=== PATIENT | female | born 1995 | race Caucasian/White ===

== ENCOUNTER 2016-07-16 10:20 | Emergency (ER) | payer OTHER ==
[2016-07-16] MEDS ORDERED: Ondansetron ODT TAB* 4 MG PO ONE (11:14)
[2016-07-16] MEDS ORDERED: Lidocaine 2% PF* 5 ML VIAL ONE (11:17)
--- NOTE | 2016-07-16 12:41 | UC ---
Laceration HPI - HPI Summary HPI Summary: WHILE WORKING WITH [employer], CHAIN BROKE AND HIT WINDOW, GLASS SHATTERED CAUSING CUT TO RIGHT EAR. NO LOC. NO N/V NO NECK PAIN. NO HEADACHE. NO BLOOD DISORDERS. - History Of Current Complaint Chief Complaint: UCLaceration Stated Complaint: EAR LAC,HEAD INJ,GLASS Time Seen by Provider: 07/16/16 10:42 Hx Obtained From: Patient Laceration Location: Ear Mechanism Of Injury: Blunt Trauma Onset/Duration: Lasting Hours Severity: Mild Pain Intensity: 0 Pain Scale Used: 0-10 Numeric Aggravating Factors: Nothing - Allergies/Home Medications Allergies/Adverse Reactions: Allergies Allergy/AdvReac Type Severity Reaction Status Date / Time No Known Allergies Allergy Verified 07/16/16 10:40 Home Medications: Home Medications NK [No Home Medications Reported] 07/16/16 [History Confirmed 07/16/16] PMH/Surg Hx/FS Hx/Imm Hx Previously Healthy: Yes Cardiovascular History Of: Comment Only: Cardiac Disorders - Irregular HR Respiratory History Of: Reports: Asthma - As child - Surgical History Surgical History: None - Family History Known Family History: Negative: Blood Disorder - Social History Occupation: Employed Full-time, Student Lives: With Family Alcohol Use: Rare Substance Use Type: None Smoking Status (MU): Never Smoked Tobacco Review of Systems Constitutional: Negative Skin: Other - LACERATION RIGHT EAR Eyes: Negative ENT: Negative Respiratory: Negative Cardiovascular: Negative Gastrointestinal: Negative Genitourinary: Negative Motor: Negative Neurovascular: Negative Musculoskeletal: Negative Neurological: Negative Psychological: Negative All Other Systems Reviewed And Are Negative: Yes Physical Exam Triage Information Reviewed: Yes Appearance: Well-Appearing, No Pain Distress, Well-Nourished Vital Signs: Initial Vital Signs Temp 98.8 F 07/16/16 10:40 Pulse 78 07/16/16 10:40 Resp 18 07/16/16 10:40 BP 143/78 07/16/16 10:40 Pulse Ox 100 07/16/16 10:40 Vital Signs Reviewed: Yes Eye Exam: Normal Eyes: Positive: Conjunctiva Clear ENT: Positive: Normal ENT inspection, Hearing grossly normal, Pharynx normal, TMs normal, Other: - CERUMEN IMPACTION RIGHT EAR Dental Exam: Normal Neck exam: Normal Neck: Positive: Supple, Nontender Respiratory Exam: Normal Respiratory: Positive: Chest non-tender, Lungs clear, Normal breath sounds, No respiratory distress, No accessory muscle use Cardiovascular Exam: Normal Cardiovascular: Positive: RRR, No Murmur, Pulses Normal Abdominal Exam: Normal Abdomen Description: Positive: Nontender, No Organomegaly Musculoskeletal Exam: Normal Musculoskeletal: Positive: Strength Intact, ROM Intact Neurological Exam: Normal Neurological: Positive: Alert Psychological Exam: Normal Psychological: Positive: Normal Response To Family Skin Exam: Other - LACERATION RIGHT EAR Laceration Repair - Laceration Repair 1 Description: Irregular - RIGHT EAR HELIX Laceration Size After Repair: Length (cm) - 3, Width (mm) - 3, Depth (mm) - 2 Modified For Repair: Yes Type Injection: Local Anesthesia Used: 2.0% Lido Cleansing Completed Via Routine Prep: Yes Irrigation With Pressure Irrigation Device: Yes Closure Material: Sutures - 3 X 5-0 Closure Method: Single Layer Suture Of: Skin Suture Type: Prolene Laceration Course/Dx - Differential Dx - Laceration/Wound Differental Diagnoses: Fracture, Laceration Provider Diagnoses: RIGHT EAR LACERATION. HEAD INJURY. RIGHT EAR CERUMEN IMPACTION Discharge - Discharge Plan Condition: Stable Disposition: HOME Patient Education Materials: Care For Your Stitches (ED), Laceration (ED), Head Injury (ED) Referrals: [facility] [Outside] Non Staff,Doctor [Primary Care Provider] -
== END 2016-07-16 12:23 | disposition home or self-care (01) ==
LOC: UCEAST 10:20
DX: S01.311A Laceration without foreign body of right ear, initial encounter (principal); W25.XXXA Contact with sharp glass, initial encounter; Y93.89 Activity, other specified; Y92.89 Other specified places as the place of occurrence of the external cause; Y99.0 Civilian activity done for income or pay; H61.21 Impacted cerumen, right ear; R03.0 Elevated blood-pressure reading, without diagnosis of hypertension
CPT/HCPCS: 12013; 99203; G0463

== ENCOUNTER 2017-08-24 11:35 | Emergency (ER) | payer OTHER ==
[2017-08-24 11:50] VITALS: BP 135/85
--- NOTE | 2017-08-24 12:38 | UC ---
Abdominal Pain Female HPI - HPI Summary HPI Summary: 6 days of "feeling off". Now has nausea, vomiting and water and mucous stool--- - History of Current Complaint Hx Obtained From: Patient Hx Last Menstrual Period: 08/17/17 ?: No Onset/Duration: Sudden Onset, Lasting Days - 6, Still Present Timing: Constant Severity Initially: Moderate Severity Currently: Moderate Pain Intensity: 5 Pain Scale Used: 0-10 Numeric Location: Diffuse Radiates: No Character: Cramping Aggravating Factor(s): Nothing Alleviating Factor(s): Nothing Associated Signs and Symptoms: Positive: Decreased Appetite, Nausea, Vomiting, Diarrhea <Winnie Mandujano - Last Filed: 08/24/17 13:28> <Josee Amos - Last Filed: 08/24/17 14:08> - History of Current Complaint Chief Complaint: UCRespiratory Stated Complaint: FLU SYMPTOMS Time Seen by Provider: 08/24/17 12:11 Allergies/Adverse Reactions: Allergies Allergy/AdvReac Type Severity Reaction Status Date / Time No Known Allergies Allergy Verified 08/24/17 11:50 PMH/Surg Hx/FS Hx/Imm Hx Previously Healthy: Yes - Surgical History Surgical History: None - Family History Known Family History: Positive: None Negative: Blood Disorder - Social History Occupation: Employed Full-time - maritime officer self employed [place] Lives: Alone Alcohol Use: Occasionally Substance Use Type: None Smoking Status (MU): Never Smoked Tobacco <Winnie Mandujano - Last Filed: 08/24/17 13:28> Review of Systems Constitutional: Negative Skin: Negative Eyes: Negative ENT: Negative Respiratory: Negative Cardiovascular: Negative Gastrointestinal: Abdominal Pain, Vomiting, Diarrhea, Nausea Genitourinary: Negative Motor: Negative Neurovascular: Negative Musculoskeletal: Negative Neurological: Negative Psychological: Negative Is Patient Immunocompromised?: No All Other Systems Reviewed And Are Negative: Yes <Winnie Mandujano - Last Filed: 08/24/17 13:28> Physical Exam Triage Information Reviewed: Yes Appearance: Well-Appearing, No Pain Distress, Well-Nourished Vital Signs: Initial Vital Signs Temp 100.5 F 08/24/17 11:42 Pulse 105 08/24/17 11:42 Resp 18 08/24/17 11:42 BP 135/85 08/24/17 11:42 Pulse Ox 99 08/24/17 11:42 Vital Signs Reviewed: Yes Eye Exam: Normal Eyes: Positive: Conjunctiva Clear ENT Exam: Normal ENT: Positive: Normal ENT inspection, Hearing grossly normal, Pharynx normal, Uvula midline, Other - tms with cerumen. Negative: Nasal congestion, Trismus, Muffled voice, Hoarse voice, Sinus tenderness Dental Exam: Normal Neck exam: Normal Neck: Positive: Supple, Nontender Respiratory Exam: Normal Respiratory: Positive: Chest non-tender, Lungs clear, Normal breath sounds, No respiratory distress, No accessory muscle use Cardiovascular Exam: Normal Cardiovascular: Positive: RRR, Pulses Normal, Brisk Capillary Refill, Tachycardia Abdominal Exam: Other Abdomen Description: Positive: No Organomegaly, Soft. Negative: CVA Tenderness (R), CVA Tenderness (L), Distended, Guarding, McBurney's Point Tenderness, Peritoneal Signs Bowel Sounds: Positive: Present Musculoskeletal Exam: Normal Musculoskeletal: Positive: Strength Intact, ROM Intact, No Edema Neurological Exam: Normal Neurological: Positive: Alert, Muscle Tone Normal Psychological Exam: Normal Skin Exam: Normal <Winnie Mandujano - Last Filed: 08/24/17 13:28> Vital Signs: Initial Vital Signs Temp 100.5 F 08/24/17 11:42 Pulse 105 08/24/17 11:42 Resp 18 08/24/17 11:42 BP 135/85 08/24/17 11:42 Pulse Ox 99 08/24/17 11:42 <Josee Amos - Last Filed: 08/24/17 14:08> Diagnostics - Laboratory Diagnostic Studies Completed/Ordered: Stool--guiac (-), Urine sg 1.025, trace ketones, +1 BILI AND KETONES <Winnie Mandujano - Last Filed: 08/24/17 13:28> Abd Pain Female Course/Dx - Course Course Of Treatment: TO [facility] FOR FURTHER EVALUATION AND TREATMENT OF ABDOMEN PAIN - Differential Dx/Diagnosis Provider Diagnoses: Colitis <Winnie Mandujano - Last Filed: 08/24/17 13:28> Discharge - Sign-Out/Discharge Documenting (check all that apply): Discharge - PAT TO [facility] BY PRIVATE CAR FOR FURTHER EVALUATION - Billing Disposition and Condition Condition: FAIR Disposition: HOME <Winnie Mandujano - Last Filed: 08/24/17 13:28> - Billing Disposition and Condition Condition: FAIR Disposition: HOME <Josee Amos - Last Filed: 08/24/17 14:08> - Discharge Plan Condition: Fair Disposition: HOME Patient Education Materials: Colitis (ED) Referrals: Non Staff,Doctor [Primary Care Provider] - Additional Instructions: Please go directly to the emergency department for continued care Attestation Statement User Type: Provider - I was available for consult. This patient was seen by the ADALI. The patient was not presented to, seen by, or examined by me. Ljj <Josee Amos - Last Filed: 08/24/17 14:08>
--- NOTE | 2017-08-25 17:04 | UC ---
- Progress Note Progress Note: call aptient and assure that she is better if not please recollect stool sample as quanity provided was not enough for testing Discharge - Sign-Out/Discharge Documenting (check all that apply): Post-Discharge Follow Up - Discharge Plan Condition: Fair Disposition: HOME Patient Education Materials: Colitis (ED) Referrals: Non Staff,Doctor [Primary Care Provider] - Additional Instructions: Please go directly to the emergency department for continued care - Billing Disposition and Condition Condition: FAIR Disposition: HOME
--- NOTE | 2017-08-26 13:22 | UC ---
- Progress Note Progress Note: Lab called with positive cryptosporidium. I am told that our staff has been trying to get in contact with the pt multiple times to see how she is feeling and have been unsuccessful. Cryptosporidium is generally self limiting, but may take up to two weeks for diarrhea to fully resolve. May take Imodium OTC 4 mg, followed by 2 mg after each loose stool - max of 16mg/day. During that time frame it is important to stay hydrated. If we are able to get into contact with pt, please let her know the above. If she is feeling worse - should go to ED for IVF. Discharge - Sign-Out/Discharge Documenting (check all that apply): Post-Discharge Follow Up - Discharge Plan Condition: Fair Disposition: HOME Patient Education Materials: Colitis (ED) Referrals: Non Staff,Doctor [Primary Care Provider] - Additional Instructions: Please go directly to the emergency department for continued care - Billing Disposition and Condition Condition: FAIR Disposition: HOME
== END 2017-08-24 13:35 | disposition home or self-care (01) ==
LOC: UCEAST 11:35
DX: K52.9 Noninfective gastroenteritis and colitis, unspecified (principal)
CPT/HCPCS: 81003; 82272; 87045; 87046; 87077; 87328; 87329; 87502; 99212; G0463

== ENCOUNTER 2017-11-26 21:02 | Emergency (ER) | payer OTHER ==
[2017-11-26 21:22] VITALS: BP 129/85
--- NOTE | 2017-11-26 21:36 | UC ---
Head Injury HPI - HPI Summary HPI Summary: 22 year old female with history of prior concussion here after she fell from a horse. She hit her head but no LOC. Reports headache and nausea with no vomiting. Patient reports left ankle pain and swelling. No numbness or tingling. No change in vision. No other complaints. - History Of Current Complaint Chief Complaint: UCTrauma Stated Complaint: ANKLE INJURY AND HEAD INJURY Time Seen by Provider: 11/26/17 21:23 Hx Obtained From: Patient Hx Last Menstrual Period: 11/15/17 Onset/Duration: Sudden Onset Severity Currently: Mild Pain Intensity: 2 Character: Sharp - Allergies/Home Medications Allergies/Adverse Reactions: Allergies Allergy/AdvReac Type Severity Reaction Status Date / Time No Known Allergies Allergy Verified 11/26/17 21:10 Home Medications: Home Medications NK [No Home Medications Reported] 11/26/17 [History Confirmed 11/26/17] PMH/Surg Hx/FS Hx/Imm Hx Previously Healthy: Yes - Surgical History Surgical History: None - Family History Known Family History: Positive: None, Diabetes, Other - Hyperthyroidism and hypothyroidism Negative: Blood Disorder - Social History Alcohol Use: Rare Substance Use Type: None Smoking Status (MU): Never Smoked Tobacco Review of Systems Constitutional: Negative Skin: Negative Eyes: Negative ENT: Negative Respiratory: Negative Cardiovascular: Negative Gastrointestinal: Nausea Genitourinary: Negative Motor: Negative Neurovascular: Negative Musculoskeletal: Negative Neurological: Headache Psychological: Negative All Other Systems Reviewed And Are Negative: Yes Physical Exam Triage Information Reviewed: Yes Appearance: Well-Appearing, No Pain Distress Vital Signs: Initial Vital Signs Temp 37.0 C 11/26/17 21:11 Pulse 88 11/26/17 21:11 Resp 18 11/26/17 21:11 BP 129/85 11/26/17 21:11 Pulse Ox 100 11/26/17 21:11 Eye Exam: Normal ENT Exam: Normal Dental Exam: Normal Neck exam: Normal Neck: Positive: 1 Respiratory Exam: Normal Cardiovascular Exam: Normal Abdominal Exam: Normal Musculoskeletal: Positive: ROM Limited @ - Left ankle swelling TTP over lateral mall SILT In s/s/sp/dp/ta intact DP/PT no navicular tenderness Neurological Exam: Normal Neurological: Positive: Other: - nml FTN, HTS, no nystagmus nml gait, negative rhomberg, Psychological Exam: Normal Skin Exam: Normal Diagnostics - Radiology No standard instances Xray Interpretation: Positive (See Comments) - Copied from PACS Order Information: ANKLE LEFT 3+VWS Accession Number: [id number] CPT: 17657 Indication: LEFT ankle injury. Medial and lateral pain and swelling. Comparison : No relevant prior exams available on the [facility] [place] for [place]. Technique: AP, mortise, and lateral views LEFT ankle. Report: Negative for fracture or malalignment. Small os trigonum accessory ossicle. Suggestion of a small loose body at the anterior joint recess. Talocrural joint effusion. Suggestion of a button osteophyte at the superior lateral margin of the dome of the talus which may represent sequela of a previous osteochondral lesion. Soft tissue swelling most prominent over the lateral and anterior aspects. IMPRESSION: #. Soft tissue swelling and talocrural joint effusion without evidence for fracture. #. Osteoarthritis. Probable small loose body at the anterior recess of the talocrural joint. _ <Electronically signed by Juliano Domingo MD in OV> 11/26/172148 Dictated By: Juliano Domingo MD Dictated Date/Time: 11/26/172148 Transcribed Date/Time : 11/26/172144 Copy to: Radiology Interpretation Completed By: Radiologist Head Injury Course/Dx - Course Course Of Treatment: patient did not want any medications for headache, ankle pain or nausea - Differential Dx/Diagnosis Differential Diagnosis/HQI/PQRI: Cervical Sprain, Contusion, Nasal Fracture Provider Diagnoses: Concussion and Left ankle sprain Discharge - Sign-Out/Discharge Documenting (check all that apply): Discharge/Admit/Transfer - Discharge Plan Condition: Good Disposition: HOME Patient Education Materials: Concussion (ED), Ankle Strain (ED) Referrals: No Primary Care Phys,NOPCP [Primary Care Provider] - - Billing Disposition and Condition Condition: GOOD Disposition: Home
--- NOTE | 2017-11-26 21:53 | RAD ---
Indication: LEFT ankle injury. Medial and lateral pain and swelling. Comparison: No relevant prior exams available on the [facility] PACS for comparison. Technique: AP, mortise, and lateral views LEFT ankle. Report: Negative for fracture or malalignment. Small os trigonum accessory ossicle. Suggestion of a small loose body at the anterior joint recess. Talocrural joint effusion. Suggestion of a button osteophyte at the superior lateral margin of the dome of the talus which may represent sequela of a previous osteochondral lesion. Soft tissue swelling most prominent over the lateral and anterior aspects. IMPRESSION: #. Soft tissue swelling and talocrural joint effusion without evidence for fracture. #. Osteoarthritis. Probable small loose body at the anterior recess of the talocrural joint.
[2017-11-26] MEDS ORDERED: Naproxen TAB* 250 MG PO ONE (22:17)
== END 2017-11-26 22:10 | disposition home or self-care (01) ==
LOC: UCEAST 21:02
DX: S06.0X0A Concussion without loss of consciousness, initial encounter (principal); S93.402A Sprain of unspecified ligament of left ankle, initial encounter; V80.010A Animal-rider injured by fall from or being thrown from horse in noncollision accident, initial encounter; Y93.52 Activity, horseback riding; Y92.9 Unspecified place or not applicable; M19.072 Primary osteoarthritis, left ankle and foot; R11.0 Nausea
CPT/HCPCS: 99212; G0463

== ENCOUNTER 2019-04-06 08:01 | Emergency (ER) | payer OTHER ==
--- OUTSIDE RECORDS SUMMARY | 2019-04-06 08:10 | XMS REPORT | Summary of Care ---
:1995 Author Organization [facility] Address 1 [facility] [place] [address] Care Team Providers Name Role Phone Omid Mcnulty Primary Care Provider Reason for Referral MRI/CAT/PET Scan (Routine) Status Reason Specialty Diagnoses / Referred By Referred To Procedures Contact Contact Pending Review Diagnoses Hx of concussion Omid Mcnulty MD Procedures CT HEAD WITHOUT IV CONTRAST [address] [place] [address] Diagnostic Testing (Routine) Status Reason Specialty Diagnoses / Referred By Referred To Procedures Contact Contact Pending Review Diagnoses Dizziness Omid Mcnulty MD Procedures ECHOCARDIOGRAM TTE [address] [place] [id number] MRI/CAT/PET Scan (Routine) Status Reason Specialty Diagnoses / Referred By Referred To Procedures Contact Contact Pending Review Diagnoses Dizziness Omid Mcnulty MD Procedures VL NECK CAROTID BILATERAL [address] [place], [place] [id number] Reason for Visit Reason Comments Results Encounter Details Date Type Department Care Team Description 03/17/2019 Office Visit [facility] Omid Mcnulty MD Dizziness (Primary Dx); [address] [place] [address] Chronic post-traumatic headache, not intractable; [place] [address] Hx of concussion; [phone] [place], [place] Missed periods; [address] Fatigue, unspecified type [phone] Allergies No Known Allergiesdocumented as of this encounter (statuses as of 03/17/2019) Medications No known medicationsdocumented as of this encounter (statuses as of 03/17/2019) Active Problems Problem Noted Date Anxiety and depression 03/11/2019 Hx of concussion 03/11/2019 Post-concussion headache 03/11/2019 History of eating disorder 03/11/2019 documented as of this encounter (statuses as of 03/17/2019) Social History Tobacco Use Types Packs/Day Years Used Date Never Smoker 0 Smokeless Tobacco: Never Used Alcohol Use Drinks/Week oz/Week Comments Not Currently Sex Assigned at Date Recorded Not on file Job Start Date Occupation Industry Not on file Not on file Not on file Travel History Travel Start Travel End No recent travel history available. documented as of this encounter Last Filed Vital Signs Vital Sign Reading Time Taken Comments Blood Pressure 122/84 03/17/2019 11:12 AM EDT Pulse 69 03/17/2019 11:12 AM EDT Temperature 37.2 03/17/2019 11:12 AM C (98.9 EDT F) Respiratory Rate 20 03/17/2019 11:12 AM EDT Oxygen Saturation 99% 03/17/2019 11:12 AM EDT Inhaled Oxygen Concentration - - Weight 107.2 kg (236 lb 6.4 oz) 03/17/2019 11:12 AM EDT Height - - Body Mass Index 35.94 03/11/2019 11:17 AM EDT documented in this encounter Progress Notes Omid Mcnulty MD - 03/17/2019 10:40 AM EDT PATIENT: Lelia Barragan : 1995 DATE OF SERVICE: 03/17/2019 CHIEF COMPLAINT: Chief Complaint Patient presents with Results Subjective HISTORY OF PRESENT ILLNESS: Lelia Braragan is a 23-y.o. female. Patient is here today requesting return to work status. She reports intermittent symptoms of dizziness. Reports problems with intense headache. Her headache dates back to 2012 when she sustained a concussion. Reports persistent tiredness and fatigue. She states that she is completely exhausted. At today's encounter she is tearful. She does not feel motivated. Declines depression and anxiety. No SI or HI. He has been out of work most of last week. She is requesting clearance. Lab work has been reviewed. No specific findings. There is a question of PCOS. Discussion today regarding additional lab work She is also entertaining the possibility of Lyme's disease. She had lived in an area that was highly populated with ticks carrying Lyme's disease Past medical, surgical, family and social history reviewed and updated. No significant changes noted. 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 No current facility-administered medications for this visit. No Known Allergies Social History Socioeconomic History Marital status: Single Spouse name: Not on file Number of children: Not on file Years of education: Not on file Highest education level: Not on file Occupational History Not on file Social Needs Financial resource strain: Not on file Food insecurity: Worry: Not on file Inability: Not on file Transportation needs: Medical: Not on file Non-medical: Not on file Tobacco Use Smoking status: Never Smoker Smokeless tobacco: Never Used Substance and Sexual Activity Alcohol use: Not Currently Drug use: Never Sexual activity: Yes Partners: Male control/protection: Other Lifestyle Physical activity: Days per week: Not on file Minutes per session: Not on file Stress: Not on file Relationships Social connections: Talks on phone: Not on file Gets together: Not on file Attends denominational service: Not on file Active member of club or organization: Not on file Attends meetings of clubs or organizations: Not on file Relationship status: Not on file Intimate partner violence: Fear of current or ex partner: Not on file Emotionally abused: Not on file Physically abused: Not on file Forced sexual activity: Not on file Other Topics Concern Not on file Social History Narrative [place] Student Work at [employer] Over the last 2 weeks, have you been feeling down, depressed, anxious, or hopeless?: 0 Over the past 2 weeks, have you felt little interest or pleasure in doing things ?: 0 REVIEW OF SYSTEMS: Review of Systems Constitutional: Positive for malaise/fatigue. Negative for chills, fever and weight loss. HENT: Negative for congestion, ear pain, hearing loss, sinus pain and sore throat. Eyes: Negative for blurred vision, double vision, photophobia and pain. Respiratory: Negative for cough, shortness of breath and wheezing. Cardiovascular: Negative for chest pain, palpitations and leg swelling. Gastrointestinal: Negative for abdominal pain, constipation, diarrhea, heartburn , nausea and vomiting. Genitourinary: Negative for dysuria, frequency and urgency. Musculoskeletal: Positive for joint pain and myalgias. Negative for back pain and neck pain. Skin: Negative for rash. Neurological: Negative for dizziness, tingling, tremors, sensory change, focal weakness, weakness and headaches. (-) paresthesias Endo/Heme/Allergies: Does not bruise/bleed easily. Psychiatric/Behavioral: Negative. Objective PHYSICAL EXAM: VITALS: BP 122/84 | Pulse 69 | Temp 98.9 F (37.2 C) | Resp 20 | Wt 236 lb 6.4 oz (107.2kg) | SpO2 99% | BMI 35.94 kg/m Body mass index is 35.94 kg/m. Physical Exam Vitals signs and nursing note reviewed. Constitutional: General: She is not in acute distress. Appearance: Normal appearance. She is not ill-appearing, toxic-appearing or diaphoretic. HENT: Head: Normocephalic and atraumatic. Nose: Nose normal. Mouth/Throat: Mouth: Mucous membranes are moist. Pharynx: Oropharynx is clear. No posterior oropharyngeal erythema. Eyes: Extraocular Movements: Extraocular movements intact. Conjunctiva/sclera: Conjunctivae normal. Pupils: Pupils are equal, round, and reactive to light. Neck: Musculoskeletal: Normal range of motion and neck supple. Cardiovascular: Rate and Rhythm: Normal rate and regular rhythm. Heart sounds: Normal heart sounds. Pulmonary: Effort: Pulmonary effort is normal. No respiratory distress. Breath sounds: Normal breath sounds. Abdominal: General: Abdomen is flat. Palpations: Abdomen is soft. Tenderness: There is no tenderness. Comments: (-) hepatosplenomegaly Musculoskeletal: Normal range of motion. General: No swelling, tenderness or deformity. Comments: Normal STR Lymphadenopathy: Cervical: No cervical adenopathy. Skin: General: Skin is warm. Findings: No lesion or rash. Neurological: General: No focal deficit present. Mental Status: She is alert and oriented to person, place, and time. Sensory: No sensory deficit. Motor: No weakness. Coordination: Coordination normal. Deep Tendon Reflexes: Reflexes are normal and symmetric. Psychiatric: Behavior: Behavior normal. Thought Content: Thought content normal. Judgment: Judgment normal. Comments: Tearful ASSESSMENT / IMPRESSION: ICD-9-CM ICD-10-CM 1. Dizziness 780.4 R42 VL NECK CAROTID BILATERAL ECHOCARDIOGRAM TTE 2. Chronic post-traumatic headache, not intractable 339.22 G44.329 3. Hx of concussion V15.[address] HEAD WITHOUT IV CONTRAST 4. Missed periods 626.4 N92.6 TESTOSTERONE, TOTAL 17-HYDROXYPROGESTERONE HCG QUANTITATIVE SERUM PROLACTIN FOLLICLE STIMULATING HORMONE LUTEINIZING HORMONE ESTROGEN TOTAL ESTROGEN TOTAL LUTEINIZING HORMONE FOLLICLE STIMULATING HORMONE PROLACTIN HCG QUANTITATIVE SERUM 17-HYDROXYPROGESTERONE TESTOSTERONE, TOTAL 5. Fatigue, unspecified type 780.79 R53.83 LYME DISEASE SCREEN IGG/IGM LYME DISEASE SCREEN IGG/IGM Plan 1. Dizziness. Uncertain etiology. Obtain testing to include carotid Dopplers, echocardiogram and CT of the brain considering history of concussion and frequent headache. 2. Headache persistent in nature. Obtain CT of the brain. Recommendations will follow. 3. History of concussion. CT of the brain as stated above 4. Missed menses. Additional lab work requested. Will investigate possible diagnosis of PCOS. 5. Fatigue likely multifactorial. Lab work and diagnostic testing as stated above Return after testing completed Author: Omid Mcnulty MD 03/17/2019 12:26 documented in this encounter Plan of Treatment Date Type Specialty Care Team Description 03/26/2019 Appointment Cardiology 03/26/2019 Appointment Radiology 03/26/2019 Appointment Radiology Name Type Priority Associated Diagnoses Date/Time TESTOSTERONE, TOTAL Lab Routine Missed periods 03/17/2019 12:10 PM EDT 17-HYDROXYPROGESTERONE Lab Routine Missed periods 03/17/2019 12:10 PM EDT HCG QUANTITATIVE SERUM Lab Routine Missed periods 03/17/2019 12:10 PM EDT PROLACTIN Lab Routine Missed periods 03/17/2019 12:10 PM EDT FOLLICLE STIMULATING Lab Routine Missed periods 03/17/2019 12:10 PM HORMONE EDT LUTEINIZING HORMONE Lab Routine Missed periods 03/17/2019 12:10 PM EDT ESTROGEN TOTAL Lab Routine Missed periods 03/17/2019 12:10 PM EDT LYME DISEASE SCREEN Lab Routine Fatigue, unspecified 03/17/2019 12:10 PM IGG/IGM type EDT Name Type Priority Associated Diagnoses Order Schedule VL NECK CAROTID BILATERAL Imaging Routine Dizziness Expected: 03/17/2019, Expires: 05/15/2020 ECHOCARDIOGRAM TTE CV Lab Routine Dizziness Expected: 03/17/2019, Expires: 04/20/2020 CT HEAD WITHOUT IV Imaging Routine Hx of concussion Expected: CONTRAST 03/17/2019, Expires: 03/16/2020 TESTOSTERONE, TOTAL Lab Routine Missed periods Expected: 03/17/2019 (Approximate), Expires: 03/17/2020 17-HYDROXYPROGESTERONE Lab Routine Missed periods Expected: 03/17/2019 (Approximate), Expires: 03/17/2020 HCG QUANTITATIVE SERUM Lab Routine Missed periods Expected: 03/17/2019 (Approximate), Expires: 03/17/2020 PROLACTIN Lab Routine Missed periods Expected: 03/17/2019 (Approximate), Expires: 03/17/2020 FOLLICLE STIMULATING Lab Routine Missed periods Expected: HORMONE 03/17/2019 (Approximate), Expires: 03/17/2020 LUTEINIZING HORMONE Lab Routine Missed periods Expected: 03/17/2019 (Approximate), Expires: 03/17/2020 ESTROGEN TOTAL Lab Routine Missed periods Expected: 03/17/2019 (Approximate), Expires: 03/17/2020 LYME DISEASE SCREEN Lab Routine Fatigue, unspecified Expected: IGG/IGM type 03/17/2019 (Approximate), Expires: 03/17/2020 Health Maintenance Due Date Last Done Comments CHLAMYDIA SCREENING 1995 PAP SMEAR 1995 HIV SCREENING 2010 HPV IMMUNIZATION SERIES (1 - 2010 Female 3-dose series) DEPRESSION SCREENING 03/11/2020 03/11/2019 MENINGOCOCCAL VACCINE IMM Aged Out No longer eligible based on patient's age to complete this topic PNEUMOCOCCAL 0-64 YRS Aged Out No longer eligible based on patient's age to complete this topic documented as of this encounter Goals Goal Patient Goal Associated Recent Patient-Stated? Author Type Problems Progress Depression Depression rainer Graves (PHQ-9) MD Omid total score < 5 Note: This is an individualized treatment (depression) goal for Lelia Barragan: Displayed above is your goal for a depression screening (PHQ-9) score that would indicate good control of your depression. Keep a regular sleep schedule Lifestyle Omid Graves MD Note: This is an individualized lifestyle goal for Lelia Barragan: Please maintain a regular sleep schedule. This may help with some symptoms of depression. Take all prescribed medications as directed Self-management Omid Graves MD Note: This is an individualized self-management goal for Lelia Barragan: Please take all prescribed medications as directed. 1. Do not skip doses. If you cannot afford your medications, talk with your doctor. 2. Use a pill reminder system such as a pill box if needed. Your pharmacist can help you with this. 3. Contact your Pharmacy 5 days before your medication runs out. If you cannot take your medications for any reasons, talk with your doctor. 4. Please bring all of your medication bottles and inhalers (or a list of all your medications/inhalers) with you to every visit. Potential barriers to meeting all of your care plan goals will continue to be addressed on an ongoing basis. documented as of this encounter Results Not on filedocumented in this encounter Visit Diagnoses Diagnosis Dizziness - Primary Dizziness and giddiness Chronic post-traumatic headache, not intractable Chronic post-traumatic headache Hx of concussion Personal history of traumatic brain injury Missed periods Absence of menstruation Fatigue, unspecified type documented in this encounter Insurance Payer Benefit Plan / Subscriber ID Effective Dates Phone Address Type Group [employer]CIAL AETNA xxxxxxxxxx 2019-Present [employer] documented as of this encounter"
--- OUTSIDE RECORDS SUMMARY | 2019-04-06 08:11 | XMS REPORT | Summary of Care ---
:1995 Author Organization [facility] Address [address] [facility] [place] [address] Care Team Providers Name Role Phone Omid Mcnulty Primary Care Provider Reason for Visit Reason Comments Establish Care 23 year old female Encounter Details Date Type Department Care Team Description 03/11/2019 Office Visit [facility] Omid Mcnulty MD Fatigue, unspecified type (Primary Dx); [address]; [place] [address] Palpitations; [phone] [place], [place] Missed periods; [address] Screening for lipid disorders [phone] Allergies No Known Allergiesdocumented as of this encounter (statuses as of 03/11/2019) Medications No known medicationsdocumented as of this encounter (statuses as of 03/11/2019) Active Problems Problem Noted Date Anxiety and depression 03/11/2019 Hx of concussion 03/11/2019 Post-concussion headache 03/11/2019 History of eating disorder 03/11/2019 documented as of this encounter (statuses as of 03/11/2019) Social History Tobacco Use Types Packs/Day Years [...] Sign Reading Time Taken Comments Blood Pressure 140/80 03/11/2019 11:17 AM EDT Pulse 90 03/11/2019 11:17 AM EDT Temperature 37.6 03/11/2019 11:17 AM EDT C (99.7 F) Respiratory Rate 18 03/11/2019 11:17 AM EDT Oxygen Saturation 97% 03/11/2019 11:17 AM EDT Inhaled Oxygen Concentration - - Weight 107 kg (236 lb) 03/11/2019 11:17 AM EDT Height 172.7 cm (5' 8") 03/11/2019 11:17 AM EDT Body Mass Index 35.88 03/11/2019 11:17 AM EDT documented in this encounter Progress Notes Omid Mcnulty MD - 03/11/2019 11:00 AM EDT PATIENT: Lelia Barragan : 1995 DATE OF SERVICE: 03/11/2019 CHIEF COMPLAINT: Chief Complaint Patient presents with [facility] 23 year old female Subjective HISTORY OF PRESENT ILLNESS: Lelia Barragan is a 23-y.o. female. [facility] Medical database has been reviewed and chart has been updated. Past medical, surgical, family and social history reviewed. Any significant changes have been noted. Patient's main concern is that of fatigue and feeling tired for the past year and a half. Reports headache last evening. Neck discomfort. Weight gain reported. She states 30 pound weight gain over the past year. History reviewed. No pertinent past medical history. 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 Negative for chills, fever and weight loss. Weight gain HENT: Negative for congestion, ear pain, hearing loss, sinus pain and sore throat. Eyes: Negative for blurred vision, double vision, photophobia and pain. Respiratory: Negative for cough, shortness of breath and wheezing. Cardiovascular: Positive for palpitations (Intermittent palpitations). Negative for chest pain and leg swelling. Gastrointestinal: Negative for abdominal pain, constipation, diarrhea, heartburn , nausea and vomiting. Genitourinary: Negative for dysuria, frequency and urgency. Musculoskeletal: Negative for back pain, joint pain, myalgias and neck pain. Skin: Negative for rash. Increased hair growth Neurological: Positive for headaches. Negative for dizziness, tingling, tremors , sensory change, focal weakness and weakness. (-) paresthesias Endo/Heme/Allergies: Does not bruise/bleed easily. Psychiatric/Behavioral: Positive for depression and memory loss. Negative for suicidal ideas. The patient is nervous/anxious. Objective PHYSICAL EXAM: VITALS: BP 140/80 | Pulse 90 | Temp 99.7 F (37.6 C) | Resp 18 | Ht 5' 8" (1.727 m) | Wt 236 lb (107 kg) | LMP 11/04/2018 | SpO2 97% | BMI 35.88 kg/m Body mass index is 35.88 kg/m. Physical Exam Vitals signs and nursing [...] is warm. Findings: No lesion or rash. Comments: Hyperpigmentation involving the posterior neck in a linear fashion vertically Neurological: General: No focal deficit present. Mental Status: She is alert and oriented to person, place, and time. Deep Tendon Reflexes: Reflexes are normal and symmetric. Psychiatric: Mood and Affect: Mood normal. Behavior: Behavior normal. Thought Content: Thought content normal. Judgment: Judgment normal. ASSESSMENT / IMPRESSION: ICD-9-CM ICD-10-CM 1. Fatigue, unspecified type 780.79 R53.83 CBC WITH DIFFERENTIAL COMPREHENSIVE METABOLIC PANEL FREE T4 T3, TOTAL THYROID STIMULATING HORMONE 2. Weight gain 783.1 R63.5 FREE T4 T3, TOTAL THYROID STIMULATING HORMONE 3. Palpitations 785.1 R00.2 FREE T4 T3, TOTAL THYROID STIMULATING HORMONE 4. Missed periods 626.4 N92.6 HCG, QUALITATIVE, URINE (AMB POCT) 5. Screening for lipid disorders V77.91 Z13.220 LIPID PROFILE Plan 1. Fatigue of uncertain etiology. Obtain lab work. Recommendations will follow. 2. Weight gain. Lab work as stated above. 3. Palpitations. This is infrequent. Consider Holter monitor if becoming more problematic and regular. 4. Missed menses. test was negative. Lab work requested. Consider work-up for PCOS. 5. Lab work for screening for lipid disorder. Author: Omid Mcnulty MD 03/11/2019 14:51 documented in this encounter Plan of Treatment Date Type Specialty Care Team Description 03/12/2019 Lab Family Practice Name Type Priority Associated Diagnoses Order Schedule CBC WITH DIFFERENTIAL Lab Routine Fatigue, unspecified Expected: 03/11/2019 type (Approximate), Expires: 03/11/2020 COMPREHENSIVE METABOLIC Lab Routine Fatigue, unspecified Expected: 2018 PANEL type (Approximate), Expires: 03/11/2020 FREE T4 Lab Routine Fatigue, unspecified Expected: 03/11/2019 type (Approximate), Weight gain Expires: 03/11/2020 Palpitations T3, TOTAL Lab Routine Fatigue, unspecified Expected: 03/11/2019 type (Approximate), Weight gain Expires: 03/11/2020 Palpitations THYROID STIMULATING Lab Routine Fatigue, unspecified Expected: 03/11/2019 HORMONE type (Approximate), Weight gain Expires: 03/11/2020 Palpitations LIPID PROFILE Lab Routine Screening for lipid Expected: 03/11/2019 disorders (Approximate), Expires: 03/11/2020 Health Maintenance Due Date Last Done Comments [...] this topic documented as of this encounter Procedures Procedure Name Priority Date/Time Associated Diagnosis Comments HCG, QUALITATIVE, Routine 03/11/2019 11:15 AM Missed periods Results for this URINE (AMB POCT) EDT procedure are in the results section. documented in this encounter Results HCG, QUALITATIVE, URINE (AMB POCT) (03/11/2019 11:15 AM EDT) HCG QUAL URINE (POCT) Negative Negative [facility] Control Line Present Present [facility] Lot Number [id number] [facility] Expiration Date 10/01/2019 [facility] Specimen Performing Organization Address City/State/Zipcode Phone Number [facility] [address] [place] [address] documented in this encounter Visit Diagnoses Diagnosis Fatigue, unspecified type - Primary Weight gain Abnormal weight gain Palpitations Missed periods Absence of menstruation Screening for lipid disorders documented in this encounter Insurance Payer Benefit Plan / Subscriber ID Effective Dates Phone Address Type Group [employer] xxxxxxxxxx 2019-Present [employer] documented as of this encounter
[2019-04-06] MEDS ORDERED: Albuterol/Ipratropium NEB.SOL* Albuterol 2.5 MG/Ipratropium 0.5 MG 3 ML INH ONE (08:58)
[2019-04-06] MEDS ORDERED: predniSONE TAB* 20 MG PO ONE (08:59)
--- NOTE | 2019-04-06 09:08 | UC ---
Respiratory Complaint HPI - HPI Summary HPI Summary: Patient is a 23-year-old female with a history of asthma bronchitis per patient presents urgent care today stating she's had 3 days of progressive cough with shortness of breath. Patient states when she coughs her lungs were clear. Patient has had vomiting twice related to her cough. Patient states she is producing yellow to green sputum. Patient states she feels congested with body aches. Patient states also saw her ears are painful. No sore throat. No sick contacts. Patient states she subsequently medical for cough. No over-the- counter medications taken. Patient does not currently have an inhaler. Patient states she is not . - History of Current Complaint Chief Complaint: UCRespiratory Stated Complaint: RESP ISSUE COUGH Time Seen by Provider: 04/06/19 08:18 Hx Obtained From: Patient Hx Last Menstrual Period: 03/17/19 ?: No Pain Intensity: 7 - Allergies/Home Medications Allergies/Adverse Reactions: Allergies Allergy/AdvReac Type Severity Reaction Status Date / Time No Known Allergies Allergy Verified 04/06/19 08:12 PMH/Surg Hx/FS Hx/Imm Hx Previously Healthy: Yes - Surgical History Surgical History: None - Family History Known Family History: Positive: None, Diabetes, Other - Hyperthyroidism and hypothyroidism, Non-Contributory Negative: Blood Disorder - Social History Occupation: Employed Full-time Lives: With Family Alcohol Use: Rare Substance Use Type: None Smoking Status (MU): Never Smoked Tobacco Review of Systems All Other Systems Reviewed And Are Negative: Yes Constitutional: Positive: Fever - Tactile, Fatigue ENT: Positive: Ear Ache, Nasal Discharge, Sinus Congestion, Sinus Pain/ Tenderness Respiratory: Positive: Cough, Other - Wheeze productive sputum Gastrointestinal: Positive: Negative Genitourinary: Positive: Negative Physical Exam - Summary Physical Exam Summary: Vital Signs Reviewed: Yes A+Ox3, coarse cough, tired appearing, tearful Eyes: Conjunctiva injected - tearful BREE. EOM intact and full, ENT: Hearing grossly normal right TM obscurred by cerumen, turbinates inflammed and boggy, + congested, + PND, mmoist, uvula midline, no exudate, no erythema Neck: Positive: Supple Respiratory: Positive: No respiratory distress, No accessory muscle use +coarse cough + exp wheeze diffuse Cardiovascular: RRR borderline tachy, nl s1, s2 no m/r CBT <2 sec abd soft + BS nt/nd no guarding, no distension Musculoskeletal Exam: POLACNO x 4 without difficulty Strength Intact, ROM Intact Neurological: Positive: Alert, + sensation throughout Psychological: Positive: Normal Response To examiner Skin: Positive: no rash, no ecchymosis Triage Information Reviewed: Yes Vital Signs: Initial Vital Signs Temp 97.9 F 04/06/19 08:07 Pulse 95 04/06/19 08:07 Resp 17 04/06/19 08:07 BP 136/85 04/06/19 08:07 Pulse Ox 98 04/06/19 08:07 Diagnostics - Radiology No standard instances Radiology Interpretation Completed By: Radiologist - Patient Name: MODESTO MARSHALL Medical Record#: [id number] Ordering Physician: Josee Amos MD Acct.#: [id number] : 1995 Age: 23 Sex: F Location: [facility] Exam Date: 04/06/19858 ADM Status: REG ER Order Information: CHEST PA & LAT 2 VWS Accession Number: [id number] CPT: 25759 HISTORY: cough, green sputum, asthma, sob COMPARISONS: None relevant available at the time of dictation. VIEWS: 5: Frontal dual-energy and lateral views of the chest. FINDINGS: CARDIOMEDIASTINAL SILHOUETTE: The cardiomediastinal silhouette is normal. PARTH: The parth are normal. PLEURA: The costophrenic angles are sharp. No pleural abnormalities are noted. LUNG PARENCHYMA: The lungs are clear. ABDOMEN: The upper abdomen is clear. There is no subphrenic gas. BONES AND SOFT TISSUES: No bone or soft tissue abnormalities are noted. OTHER: None. IMPRESSION: NO ACTIVE CARDIOPULMONARY DISEASE. <Electronically signed by Dale Felix MD in OV> [id number] Dictated By: Dale Felix MD Dictated Date/Time: 04/06/19940 Transcribed Date/Time: 04/06/19940 Copy to: CC:Omid Mcnulty MD; Josee Amos MD Imaging - [facility] Imaging - [facility] [address] [address] ph ([phone]) ph ([phone]) ph ([phone]) This report is only to be considered final once signed by the Provider(s) as displayed in the "<Electronically Signed by >" field (s). Absence of a signature indicates the report is in a draft status and still needs to be finalized. In the event this document was created by someone other than the signing Provider, the individual initiating the document will be listed in the "Entered by:" or "Dictated by:" hanna. 1 of 1 Re-Evaluation - Re-Evaluation First Eval Change: Improved - Pt improved following neb - less coughing cxr neg I manually removed right ear cerumen - scant fluid - no infection Respiratory Course/Dx - Course Course Of Treatment: Patient presents to urgent care reporting progressive cough congestion postnasal drip and year pain for the last 3 days. Patient states she's been wheezing. Patient states cough is productive for yellow-green sputum. Patient does have a history of asthma but does not have an inhaler. Patient did not get the flu vaccine. No travel. No [id number] medications. Vital signs reviewed. Patient is tearful. Patient with cerumen impaction right ear. Turbinates inflamed and boggy with postnasal drip. Patient does have coarse sounding cough with scattered wheezing. We'll give DuoNeb prednisone chest x- ray reassessed. Patient admitted to let me try to remove cerumen. Close reassessment. - Differential Dx/Diagnosis Provider Diagnosis: Acute bronchitis, Upper respiratory infection Discharge ED - Sign-Out/Discharge Documenting (check all that apply): Patient Departure All imaging exams completed and their final reports reviewed: Yes - Discharge Plan Condition: Stable Disposition: HOME Prescriptions: Albuterol HFA INHALER* [Ventolin HFA Inhaler*] 1 puff INH Q4H PRN #1 mdi PRN Reason: cough wheeze Amoxicillin/Clavulanate TAB* [Augmentin TAB 875*] 875 mg PO BID #20 tab Inhaler, Assist Devices [Aerochamber Mv] 1 each PO Q4HR #1 spacer predniSONE TAB* [Deltasone 20 MG TAB*] 40 mg PO DAILY #8 tab Patient Education Materials: Upper Respiratory Infection (ED), Acute Bronchitis (ED) Forms: *Work Release Referrals: Omid Mcnulty MD [Primary Care Provider] - Additional Instructions: -Take antibiotics and prednisone exactly as prescribed until gone -Use your albuterol puffer - 2 puffs every 4 hours for the next 2 days - then as needed -Stay well hydrated - avoid excess caffeine and all alcohol - eat regular, healthy meals - - humidify the air in the room where you sleep - boil water, run a hot steam shower, vaporizer, cups of water by heat register - okay to take over the counter decongestant and cough medication -- These infections are spread by secretions - do NOT share eating or drinking utensils - clean items you share with other people such as cell phones, computer mouse, TV remote, computer tablets,etc.. Once you have been antibiotics for 2 days, change your toothbrush and your pillowcase. -Contact your doctor to arrange a follow-up appointment this week. Call your doctor, return here or go to the emergency department with any questions or concerns - Billing Disposition and Condition Condition: STABLE Disposition: Home
[2019-04-06] MEDS ORDERED: Acetaminophen TAB* 325 MG PO ONE (09:55)
[2019-04-06 10:12] VITALS: BP 138/90
== END 2019-04-06 10:32 | disposition home or self-care (01) ==
LOC: UCEAST 08:01
DX: J06.9 Acute upper respiratory infection, unspecified (principal); J20.9 Acute bronchitis, unspecified; J45.909 Unspecified asthma, uncomplicated; H61.21 Impacted cerumen, right ear
CPT/HCPCS: 71046; 99213; A9270-GY; G0463; J7512

== ENCOUNTER 2021-08-26 23:52 | Inpatient (IN) ==
[2021-08-27 01:38] LABS: Hematocrit 34 % (35-47); Hemoglobin 11.7 g/dL (12.0-16.0); Mean Corpuscular HGB Conc 35 g/dL (31-36); Mean Corpuscular Hemoglobin 30 pg (27-31); Mean Corpuscular Volume 86 fL (80-97); Mean Platelet Volume 7.8 fL (7.4-10.4); Platelet Count 243 10^3/uL (150-450); Red Blood Count 3.89 10^6 /uL (3.70-4.87); Red Cell Distribution Width 13 % (10-15); White Blood Count 15.4 10^3/uL (3.5-10.8)
[2021-08-27 01:42] LABS: Urine Appearance Clear; Urine Bilirubin Negative (Negative); Urine Blood Negative (Negative); Urine Color Straw; Urine Glucose 1+(50 mg/dL) (Negative); Urine Ketones Negative (Negative); Urine Nitrite Negative (Negative); Urine Protein Negative (Negative); Urine Urobilinogen Negative (Negative)
[2021-08-27 01:58] LABS: Urine Benzodiazepine Screen None Detected (None Detect); Urine Cannabinoids Screen None Detected (None Detect); Urine Opiates Screen None Detected (None Detect)
[2021-08-27] MEDS ORDERED: LACTATED RINGERS 1000 ML BAG IV ONE (02:00)
[2021-08-27] MEDS ORDERED: Buffered Lidocaine 1% SYRIN 1 ml INTRADERM ONE (02:11)
[2021-08-27] MEDS ORDERED: Lactated Ringers 1000 ml BAG 1,000 ML IV ONE ×2 (02:11→19:32)
[2021-08-27 02:20] LABS: Albumin 3.4 g/dL (3.2-5.2); Albumin/Globulin Ratio 1.4 (1-3); Calcium 8.7 mg/dL (8.6-10.3); Globulin 2.4 g/dL (2-4); Potassium 3.9 mmol/L (3.5-5.0); Total Bilirubin 0.3 mg/dL (0.2-1.0); Total Protein 5.8 g/dL (6.4-8.9); Uric Acid 4.8 mg/dL (2.3-6.6); eGFR CKD-EPI 122.7 (>60)
[2021-08-27] MEDS ORDERED: Lactated Ringers 1000 ml BAG 1,000 ML IV SCH ×2 (03:00→20:00)
[2021-08-27] MEDS ORDERED: Oxytocin in LR 20 UNITS/1,000 ML BAG IVPB ONE (06:12)
[2021-08-27] MEDS ORDERED: Oxytocin in LR 20 UNITS/1,000 ML BAG IVPB SCH ×2 (12:00→23:00)
[2021-08-27] MEDS ORDERED: OBEPIDURAL (200 ML) 200 ML EPIDURAL ONE (17:21)
[2021-08-27] MEDS ORDERED: Lidocaine 1% MPF 5 ML VIAL ONE ×2 (18:07→22:41)
[2021-08-27 18:53] LABS: Urine Appearance Clear; Urine Bilirubin Negative (Negative); Urine Blood Negative (Negative); Urine Color Yellow; Urine Glucose Negative (Negative); Urine Ketones Negative (Negative); Urine Nitrite Negative (Negative); Urine Protein Negative (Negative); Urine Specific Gravity 1.013 (1.002-1.030); Urine Urobilinogen Negative (Negative)
[2021-08-27] MEDS ORDERED: Sodium Citrate/Citric Acid LIQ 15 ML UDC PO PRN (19:32)
[2021-08-27] MEDS ORDERED: Phenylephrine 40 mcg/mL 10mL (400mcg) SYRINGE IV PUSH PRN ×2 (19:32)
[2021-08-27] MEDS ORDERED: EPHEDrine (Pressors) 50 MG/ML VIAL IV PUSH PRN ×2 (19:32)
[2021-08-27] MEDS ORDERED: OBEPIDURAL (200 ML) 200 ML EPIDURAL SCH (20:00)
[2021-08-27] MEDS ORDERED: Glycerin ADULT 2.4 gm SUPP PR PRN (22:51)
[2021-08-27] MEDS ORDERED: Dibucaine 1% OINT 28.35 GM TUBE PR PRN (22:51)
[2021-08-27] MEDS ORDERED: Witch Hazel PAD JAR TOPICAL PRN (22:51)
[2021-08-28] MEDS ORDERED: Oxytocin in LR 20 UNITS/1,000 ML BAG IVPB ONE (00:57)
[2021-08-28 06:19] LABS: ABS Lymphocytes 1.9 10^3/ul (1.0-4.8); ABS Neutrophils 16.5 10^3/ul (1.5-7.7); Eosinophil % 0.2 %; Hematocrit 31 % (35-47); Hemoglobin 10.8 g/dL (12.0-16.0); Lymphocyte % 9.7 %; Mean Corpuscular HGB Conc 35 g/dL (31-36); Mean Corpuscular Hemoglobin 30 pg (27-31); Mean Corpuscular Volume 86 fL (80-97); Mean Platelet Volume 7.8 fL (7.4-10.4); Platelet Count 231 10^3/uL (150-450); Red Blood Count 3.57 10^6 /uL (3.70-4.87); Red Cell Distribution Width 13 % (10-15); White Blood Count 19.4 10^3/uL (3.5-10.8)
[2021-08-28] MEDS ORDERED: Measles, Mumps,Rubella VACC 0.5 ML/VIAL SUBCUT ONE (09:00)
[2021-08-28] MEDS ORDERED: Varicella Virus Vaccine Live 0.5 ML VIAL SUBCUT ONE (09:00)
[2021-08-29 12:01] VITALS: BP 135/74
== END 2021-08-29 17:55 | disposition home or self-care (01) | DRG 560 ==
LOC: MCHOBOUT 23:52 → MCHOB 08-27 00:56
PROVIDERS: ADMIT Midwife; ATTEND Midwife

== ENCOUNTER 2022-07-21 23:50 | Inpatient (IN) ==
[~2022-07-21 23:50] MED LIST: Buffered Lidocaine 1% SYRIN 1 ml INTRADERM ONE; Lactated Ringers 1000 ml BAG 1,000 ML IV ONE; Lactated Ringers 1000 ml BAG 1,000 ML IV SCH
[2022-07-22] MEDS ORDERED: Glycerin ADULT 2.4 gm SUPP PR PRN (03:25)
[2022-07-22] MEDS ORDERED: Dibucaine 1% OINT 28.35 GM TUBE PR PRN (03:25)
[2022-07-22] MEDS ORDERED: Oxytocin 10 UNITS/ML 1 ML VIAL IM ONE (03:25)
[2022-07-22] MEDS ORDERED: Witch Hazel PAD JAR TOPICAL PRN (03:25)
[2022-07-22 17:34] LABS: ABS Basophils 0.1 10^3/ul (0-0.2); ABS Eosinophils 0.1 10^3/ul (0-0.6); ABS Lymphocytes 2.7 10^3/ul (1.0-4.8); ABS Monocytes 0.9 10^3/ul (0-0.8); ABS Neutrophils 12.3 10^3/ul (1.5-7.7); Eosinophil % 0.4 %; Hematocrit 27 % (35-47); Hemoglobin 8.9 g/dL (12.0-16.0); Lymphocyte % 16.9 %; Mean Corpuscular HGB Conc 33 g/dL (31-36); Mean Corpuscular Hemoglobin 27 pg (27-31); Mean Corpuscular Volume 83 fL (80-97); Mean Platelet Volume 7.8 fL (7.4-10.4); Nucleated Red Blood Cells % 0.1; Platelet Count 290 10^3/uL (150-450); Red Cell Distribution Width 15 % (10-15)
[2022-07-23 07:55] VITALS: BP 135/78
== END 2022-07-23 11:13 | disposition home or self-care (01) | DRG 560 ==
LOC: MCHOBOUT 23:50 → MCHOB 23:51
PROVIDERS: ADMIT Midwife; ATTEND Midwife